=== PATIENT | male | born 1970 | race Caucasian/White ===

== ENCOUNTER → 2023-10-22 | Outpatient (CLI) | payer OTHER ==
--- NOTE | 2023-10-22 14:14 | US ---
EXAMINATION TYPE: US scrotum with doppler. Grayscale and color Doppler Duplex imaging performed of mariposa escamilla scrotum. DATE OF EXAM: 10/22/2023 COMPARISON: NONE CLINICAL INDICATION: Male, 53 years old with history of N50.812 LEFT TESTICULAR PAIN; Vasectomy 2003. Pain in left testicle x 3 days. EXAM MEASUREMENTS: TESTICLES: Right Testicle: 4.2 x 2.7 x 2.3 cm Left Testicle: 3.9 x 2.7 x 2.1 cm EPIDIDYMIS HEAD: Right Epididymis: 0.5 x 1.1 x 1.2 cm Left Epididymis: 0.5 x 1.2 x 1.0 cm Appears prominent Doppler performed to assess for testicular vascularity; bilateral color flow and waveforms are seen. Presence of hydroceles: Yes, right: 4.1 x 3.7 x 0.6 cm. Left: 2.2 x 1.2 x 0.8 cm. Presence of varicoceles: *Prominent vessels on left measure 0.43 cm. -Hyperechoic focus seen inferior to right testicle:0.4 x 0.2 x 0.3 cm possibly representing scrotal p ear versus surgical clip in the setting of vasectomy. *Hypoechoic area seen lateral to right testicle likely representing a dilated spermatic measuring 5.1 x 0.9 x 1.0 cm. *Hypoechoic area seen lateral to left testicle likely representing a dilated spermatic cord measuring 5.2 x 1.0 x 0.9 cm. -Anechoic areas within question possible thrombus within veins? IMPRESSION: 1. Ductal dilation of the epididymis greater on the left which can be seen in setting of post vasect gely changes. 2. Bilateral hydroceles. 3. Left varicocele with possible likely slow flow within the veins. 4. Appropriate arterial and venous spectral waveforms to the testes.
== END | disposition home or self-care (01) ==
LOC: RADUSWWP 12:08
PROVIDERS: ATTEND Family Medicine
DX: N50.812 Left testicular pain (principal); N43.3 Hydrocele, unspecified; I86.1 Scrotal varices
CPT/HCPCS: 76870; 93975